=== PATIENT | male | born 1975 | race Caucasian/White ===

== ENCOUNTER → 2017-09-09 | Outpatient (CLI) | payer OTHER ==
--- NOTE | 2017-09-09 17:05 | REP ---
CT of the abdomen pelvis without IV or bowel contrast: Comparison is 02/09/2015. The visualized lung og are unremarkable. The unenhanced hepatic parenchyma, gallbladder, pancreas, spleen, adrenals and kidneys are unremarkable. There are no renal calculi. There are no ureteral calculi. There are no bladder calculi. There is no hydronephrosis. The abdominal aorta is unremarkable. The bowel and mesentery are unremarkable. Pelvis: The the patient indicates he has an appendectomy. The bladder is unremarkable. The prostate is moderately enlarged and effaces the bladder base. The pelvic bowel loops are unremarkable. There is no ascites or adenopathy. Impression: There are no renal collecting system calculi. The prostate is moderately enlarged and effaces the bladder base. Otherwise, negative CT of the abdomen and Signed by Jong Boo MD 09/09/2017 04:56 P
== END ==
LOC: M RAD 14:02
PROVIDERS: ATTEND Physician Assistant Medical
DX: M10.9 Gout, unspecified (principal); N40.0 Benign prostatic hyperplasia without lower urinary tract symptoms